=== PATIENT | male | born 1990 | race Caucasian/White ===

== ENCOUNTER 2020-01-14 22:30 | Emergency (ER) | payer BC ==
[~2020-01-14] VITALS: Ht 180.3 cm; Wt 68.2 kg
[2020-01-14] MEDS ORDERED: PB/HYOSCY/ATR/SCOP/LIDO/MAALOX 55 ML BOTTLE PO ONE (23:30)
[2020-01-15 00:50] VITALS: BP 128/76
== END 2020-01-15 01:45 | disposition home or self-care (01) ==
LOC: EMS 22:37
DX: T17.228A Food in pharynx causing other injury, initial encounter (principal); W45.8XXA Other foreign body or object entering through skin, initial encounter; Y93.89 Activity, other specified; Y92.89 Other specified places as the place of occurrence of the external cause; Y99.8 Other external cause status
CPT/HCPCS: 70360